=== PATIENT | female | born 1950 | race Caucasian/White ===

== ENCOUNTER 2025-03-21 06:38 | Emergency (ER) | payer MEDICARE, SELFPAY ==
[2025-03-21 06:40] VITALS: BMI 22.9
[2025-03-21 06:47] VITALS: BP 204/112; PULSE 75; RESP 18; TEMP 36.7; O2SAT 96
--- NOTE | 2025-03-21 06:54 | XR_ITS ---
Examination: CT soft tissue neck, with intravenous contrast. 2-D coronal reconstructions. 2-D sagittal reconstructions. Date and time of exam :March 21, 2025, 0832 hrs. Indications: Difficulty swallowing beginning 2 weeks ago. CTDI: vol (mGy):10.8 DLP: (mGycm):300 Technique: 1.25 mm axial sections of the neck of the obtained. Coronal and sagittal reconstructions have been obtained. Intravenous contrast administered 50 cc Isovue-370. Low dose protocols were performed. One or more of the following dose reduction techniques were used; automated exposure control, adjustment of the mA and/or KV according to patient size, use of iterative reconstruction technique. Findings: Chronic left sphenoid sinusitis Symmetrical nasopharynx oropharynx No pathologic cervical lymphadenopathy Symmetrical parotid submandibular glands. The larynx appears normal Enlarged right thyroid lobe with multiple right thyroid nodules, the largest 12 mm Normal epiglottis No prevertebral soft tissue prominence Significant degenerative disc disease C5-C6, C6-C7, prominent anterior osteophytes C6-C7 Impression: No pathologic lymphadenopathy Normal appendix Normal epiglottis Right thyromegaly with multiple right thyroid nodules, recommend dedicated thyroid sonography follow-up Given the patient's presentation, recommend standard fluoroscopically guided esophagram follow-up
--- NOTE | 2025-03-21 06:54 | PD.EDRME ---
Rapid Medical Screening Exam RME Arrival date/time: 03/21/25 06:38 Chief Complaint: General Adult/Misc Complain Time Seen by Provider: 03/21/25 06:48 Vital signs: Vital Signs Temperature 98.1 F 03/21/25 06:47 Pulse Rate 75 03/21/25 06:47 Respiratory Rate 18 03/21/25 06:47 Blood Pressure 204/112 H 03/21/25 06:47 Pulse Oximetry (%) 96 03/21/25 06:47 Oxygen Delivery Method Room Air 03/21/25 06:47 RME Narrative: Difficulty swallowing, throat swelling sensation x3 weeks. Reports nasal congestion started this morning. No shortness of breath or vomiting reported. Able to tolerate po.
[2025-03-21 07:27] LABS: Basophils # (Auto) 0.0 Thou/mm3 (0.0-0.2); Basophils % (Auto) 1 % (0-2.5); Eosinophils # (Auto) 0.1 Thou/mm3 (0.0-0.5); Eosinophils % (Auto) 2 % (0-10); Hematocrit 40.1 % (36.0-46.0); Hemoglobin 13.5 g/dL (12.0-16.0); Immature Granulocytes Auto 0.01 Thou/mm3 (0.00-0.00); Lymphocytes # (Auto) 1.3 Thou/mm3 (1.0-4.8); Lymphocytes % (Auto) 19 % (10-50); Mean Corpuscular HGB Conc 33.7 g/dl (31.0-37.0); Mean Corpuscular Hemoglobin 31.8 pg (25.0-35.0); Mean Corpuscular Volume 95 fL (80-100); Monocytes # (Auto) 0.5 Thou/mm3 (0.0-0.8); Monocytes % (Auto) 8 % (0-12); Neutrophils # (Auto) 4.7 Thou/mm3 (1.8-7.7); Neutrophils % (Auto) 70 % (37-80); Nucleated Red Blood Cell # 0.00 Thou/mm3 (0.00-0.00); Nucleated Red Blood Cell % 0 /100 WBC (0); Platelet Count 234 Thou/mm3 (140-440); RDW Standard Deviation 42.7 fL (36.4-46.3); Red Blood Count 4.24 Miln/mm3 (4.00-5.20); White Blood Count 6.6 Thou/mm3 (3.6-11.0)
[2025-03-21 08:19] LABS: Alanine Aminotransferase 13 U/L (10-49); Albumin, Serum 4.3 gm/dL (3.4-4.8); Albumin/Globulin Ratio 1.6 (1.2-2.2); Alkaline Phosphatase 45 U/L (46-116); Anion Gap 6 (7-16); Aspartate Amino Transferase 15 U/L (0-34); BUN/Creatinine Ratio 13 Ratio (12-20); Bilirubin,Total 0.7 mg/dL (0.3-1.2); Blood Urea Nitrogen 13 mg/dL (9-23); Calcium 10.4 mg/dL (8.3-10.6); Calcium (Corrected) 10.4 mg/dL (8.5-10.1); Carbon Dioxide 26.6 mMol/L (20.0-31.0); Chloride 109 mMol/L (98-107); Creatinine (Component) 1.0 mg/dL (0.6-1.3); Estimated Creatinine Clearance 52.6 mL/min (>60); Globulin 2.7 gm/dL (2.3-3.5); Glucose 111 mg/dL (74-106); Osmolality,Calculated 284 (275-295); Potassium 4.2 mMol/L (3.4-5.1); Sodium 142 mMol/L (136-145); Total Protein 7.0 gm/dL (5.7-8.2); eGFR 59 See Note
[2025-03-21 09:54] LABS: T4 (Thyroxine) 7.5 mcg/dL (4.5-10.9)
[2025-03-21 09:58] VITALS: BP 186/99; PULSE 61; RESP 18; O2SAT 98
--- NOTE | 2025-03-21 09:58 | XR_ITS ---
Examination: Thyroid sonography complete Technique: Grayscale sonographic images thyroid lobes Date and time: March 21, 2025, 10:00 AM Indications: CT examination soft tissue neck 20/07/2024 0832 hrs. Right thyromegaly multiple thyroid nodules Findings: Right thyroid 5.3 cm Upper pole nodule 16 x 12 mm, 11 x 10 mm Midpole nodules 18 x 14 mm, 12 x 10 mm Lower pole nodule 15 x 13 mm Isthmus vascular nodule 22 x 19 mm Isthmus solid nodule 5 x 6 mm Right thyroid 4.5 cm Lower pole cyst 4 x 3 mm Impression: Multiple thyroid nodules as above Consider ultrasound-guided fine-needle aspiration of the vascular isthmus nodule and the midpole right thyroid nodule to exclude malignant cytology
--- NOTE | 2025-03-21 10:00 | PD.EDADULT ---
ED General RME/HPI General Chief complaint: General Adult/Misc Complain Stated complaint: CAN'T SWALLOW Time Seen by Provider: 03/21/25 06:48 Arrival date/time: 03/21/25 06:38 Limitations: no limitations RME / HPI RME / HPI narrative: Difficulty swallowing, throat swelling sensation x3 weeks. Reports nasal congestion started this morning. No shortness of breath or vomiting reported. Able to tolerate po. DR. ARAUJO MAIN ED EVALUATION: 74-year-old female with past medical history of hypertension (on propranolol) and hyperlipidemia (on atorvastatin) presents to the Emergency Department accompanied by her for evaluation of difficulty swallowing and inability to coordinate talking and breathing. She reports symptoms have worsened over the past few months, including inability to breathe through her mouth when lying down. She describes a sensation of obstruction inside the throat. She had an endoscopy two years ago and is under monitoring for thyroid disease. She denies fevers, rhinorrhea, or recent travel. Her recently had a brief viral illness, and the patient developed a mild cough afterward but has had no fevers or nasal symptoms. She has no allergies. Related Data Previous Rx's ?Medication ?Instructions ?Recorded amoxicillin 875 mg-potassium 1 tab PO Q12H #14 tabs 03/21/25 clavulanate 125 mg tablet Allergies Allergy/AdvReac Type Severity Reaction Status Date / Time No Known Allergies Allergy Verified 03/21/25 06:39 Review of Systems Review of Systems Systems Reviewed: All systems reviewed, normal except as documented Past Medical History Past Medical History ENT: Positive Cataracts Family History FAMILY HISTORY: Positive Family Surgery Social History SMOKING STATUS: Never smoker SUBSTANCE USE: does not use ALCOHOL: Never ED Exam General Limitations: Present no limitations General appearance: Present alert, in no apparent distress and other (no stridor) Head Head exam: Present other (1.5 cm brown scalp lesion without fluctuance or tenderness, currently being followed by dermatology.) Eye Eye exam: Present normal appearance, PERRL and EOMI ENT ENT exam: Present normal exam, normal oropharynx, mucous membranes moist and other (uvula is midline without deviation, no tongue deviation) Neck Neck exam: Present full ROM, trachea midline and other (enlarged lymph nodes) Chest Chest inspection: Present normal inspection and symmetric chest wall rise Respiratory Respiratory exam: Present normal lung sounds bilaterally Cardiovascular Cardiovascular exam: Present regular rate, normal rhythm and normal heart sounds Abdominal Exam Abdominal exam: Present soft and normal bowel sounds Extremities Exam Extremities exam: Present normal inspection and full ROM Back Exam Back exam: Present normal inspection and full ROM Neurological Exam Neurological exam: Present alert, oriented X3 and CN II-XII intact Psychiatric Psychiatric exam: Present normal affect and normal mood Skin Skin exam: Present warm, dry, intact and normal color Course Quality Measures none Orders Category Date Time Status Bedside COVID-19 Antigen Test NOW Care 03/21/25 06:56 Active Bedside Influenza A&B Antigen Test NOW Care 03/21/25 06:[address] Screening NOW Care 03/21/25 06:[address] soft tissue neck w con Stat Exams 03/21/25 06:54 Completed CXR2 [XR chest 2V] Stat Exams 03/21/25 10:00 Completed US thyroid Stat Exams 03/21/25 09:58 Completed CBC Stat Lab 03/21/25 07:16 Completed CMP [Comprehensive Metabolic Panel] Stat Lab 03/21/25 07:16 Completed [place] Screen Stat Lab 03/21/25 07:16 Completed Strep A Rapid Stat Lab 03/21/25 10:25 Completed T4 (Thyroxine) Stat Lab 03/21/25 07:16 Completed Thyroid Stimulating Hormone Stat Lab 03/21/25 07:16 Completed Amoxicillin/Pot Clav 875 [Augmentin 875] Med 03/21/25 09:59 Discontinued 1 tab PO X1 ONE Aspirin [Ecotrin] Med 03/21/25 10:09 Discontinued 81 mg PO X1 ONE Propranolol HCl [Inderal] Med 03/21/25 10:09 Discontinued 40 mg PO X1 ONE Valsartan [Diovan] Med 03/21/25 10:09 Discontinued 40 mg PO X1 ONE Vital Signs Vital signs: Vital Signs Temperature 98.1 F 03/21/25 06:47 Pulse Rate 75 03/21/25 06:47 Respiratory Rate 18 03/21/25 06:47 Blood Pressure 204/112 H 03/21/25 06:47 Pulse Oximetry (%) 96 03/21/25 06:47 Oxygen Delivery Method Room Air 03/21/25 06:47 Discharge Plan Plan Patient Disposition: HOME (Self Care) Prescriptions/Referrals Prescriptions/Med Rec: New amoxicillin-pot clavulanate 875-125 mg tablet 1 tab PO Q12H Qty: 14 0RF Referrals: Carlito Blankenship MD [Primary Care Provider] - In 1 week Problem List Clinical Impression: Sinusitis, Lymphadenopathy Patient/Caregiver Discharge Instructions Additional Instructions: Please follow-up with your primary care physician within a week and get an endoscopy and follow up with an steamer tender for further assessment of your thyroid nodules, you may benefit from a repeat fine-needle biopsy. Return to the Emergency Department for worsening symptoms, difficulty breathing, or any other symptom of concern. Print Language: Luxembourgish Stand Alone Forms: Christina Award Info., Patient Portal Info Letter MDM Narrative MDM hospital course (for use when minimal MDM required): 74-year-old female with hypertension and hyperlipidemia presents with progressive dysphagia and sensation of throat obstruction, however has not had any difficulty with speaking, breathing or drinking or eating. Patient does not wake up in the middle the night gasping for air. Has been able to sleep comfortably. Labs without any acute hematologic or significant metabolic abnormality. Thyroid studies unremarkable, strep COVID flu negative. Chest x-ray without any acute cardiopulmonary abnormality. Thyroid ultrasound with multiple thyroid nodules. CT neck demonstrates thyromegaly with right-sided thyroid nodules, correlating with her symptoms. Enlarged lymph nodes further raise concern for thyroid disease. airway is currently stable with no stridor or tongue deviation, no difficulty breathing, no drooling, no difficulty handling secretions. Augmentin initiated given concern for possible sinus infection given patient also feels congested, and tightness at her maxillary sinus, patient does have a sick contact at home with respiratory symptoms. Patient is not in respiratory distress.. On multiple reevaluations patient hemodynamically stable not in distress will discharge to home with close return precautions and follow-up with her primary care doctor. All questions answered, patient in agreement with treatment plan Differential diagnosis: Thyroid enlargement with nodules, lymphadenopathy, and upper respiratory infection contributing to throat irritation. Most likely diagnosis given after review of the tests above: Sinusitis, thyroid nodules Latisha Lang am scribing for and in the presence of Dr. Araujo. Clinical Information Provided by: patient and spouse Medical Records reviewed [facility] Meds/Rx considered, not ordered None Labs/Rad/Tests considered, not ordered None Chronic Illness/Social Conditions Explain: Hypertension (on propranolol) and hyperlipidemia (on atorvastatin). She has no allergies. Labs Labs: see narrative above Imaging Imaging interpretation: see narrative above Imaging Interpretation(s): Procedure(s): XR chest 2V Accession Number(s): [id number] cc: [employer] BLANKENSHIP; Hernán Booker MD; Jessica Araujo MD~ Examination: PA lateral chest 2 views Technique: Upright PA lateral chest 2 views Date and time: March 21, 2025 1029 hrs. Indications: Difficulty breathing today. Findings: Minor prominence left ventricle Vascular congestion Subsegmental atelectasis right base laterally Moderate osteopenia Impression: Mild prominence of ventricle. No pneumonia or pulmonary edema Dictated By: Hernán Booker MD Procedure(s): US thyroid Accession Number(s): [id number] cc: [employer]ANK[employer]; Hernán Booker MD; Jessica Araujo MD~ Examination: Thyroid sonography complete Technique: Grayscale sonographic images thyroid lobes Date and time: March 21, 2025, 10:00 AM Indications: CT examination soft tissue neck 20/07/2024 0832 hrs. Right thyromegaly multiple thyroid nodules Findings: Right thyroid 5.3 cm Upper pole nodule 16 x 12 mm, 11 x 10 mm Midpole nodules 18 x 14 mm, 12 x 10 mm Lower pole nodule 15 x 13 mm Isthmus vascular nodule 22 x 19 mm Isthmus solid nodule 5 x 6 mm Right thyroid 4.5 cm Lower pole cyst 4 x 3 mm Impression: Multiple thyroid nodules as above Consider ultrasound-guided fine-needle aspiration of the vascular isthmus nodule and the midpole right thyroid nodule to exclude malignant cytology Dictated By: Hernán Booker MD Procedure(s): CT soft tissue neck w con Accession Number(s): [id number] cc: [employer]; Hernán Booker MD; Tristin Gelason PA-C~ Examination: CT soft tissue neck, with intravenous contrast. 2-D coronal reconstructions. 2-D sagittal reconstructions. Date and time of exam :March 21, 2025, 0832 hrs. Indications: Difficulty swallowing beginning 2 weeks ago. CTDI: vol (mGy):10.8 DLP: (mGycm):300 Technique: 1.25 mm axial sections of the neck of the obtained. Coronal and sagittal reconstructions have been obtained. Intravenous contrast administered 50 cc Isovue-370. Low dose protocols were performed. One or more of the following dose reduction techniques were used; automated exposure control, adjustment of the mA and/or KV according to patient size, use of iterative reconstruction technique. Findings: Chronic left sphenoid sinusitis Symmetrical nasopharynx oropharynx No pathologic cervical lymphadenopathy Symmetrical parotid submandibular glands. The larynx appears normal Enlarged right thyroid lobe with multiple right thyroid nodules, the largest 12 mm Normal epiglottis No prevertebral soft tissue prominence Significant degenerative disc disease C5-C6, C6-C7, prominent anterior osteophytes C6-C7 Impression: No pathologic lymphadenopathy Normal appendix Normal epiglottis Right thyromegaly with multiple right thyroid nodules, recommend dedicated thyroid sonography follow-up Given the patient's presentation, recommend standard fluoroscopically guided esophagram follow-up Dictated By: Hernán Booker MD Medication Administration(s) Medication Administration History Discontinued Medications Amoxicillin/Clavulanate Potassium (Amoxicillin/Pot Clav 875 Tablet) 1 tab PO X1 ONE Stop: 03/21/25 10:00 Last Admin: 03/21/25 10:20 Dose: 1 tab Documented By: BY Aspirin (Aspirin Ec 81 Mg Tabec) 81 mg PO X1 ONE Stop: 03/21/25 10:10 Last Admin: 03/21/25 10:20 Dose: 81 mg Documented By: BY Propranolol HCl (Propranolol 40 Mg Tablet) 40 mg PO X1 ONE Stop: 03/21/25 10:10 Last Admin: 03/21/25 10:20 Dose: 40 mg Documented By: BY Valsartan (Valsartan 40 Mg Tablet) 40 mg PO X1 ONE Stop: 03/21/25 10:10 Last Admin: 03/21/25 10:20 Dose: 40 mg Documented By: BY Diagnosis Differential Diagnosis ED Complaint MDM: Thyroid enlargement with nodules, lymphadenopathy with airway compression,
[2025-03-21 10:03] LABS: Thyroid Stimulating Hormone 2.07 uIU/mL (0.55-4.78)
[2025-03-21 10:20] VITALS: BP 186/99; PULSE 65; PULSE 66
[2025-03-21] MEDS: VALSARTAN 40 MG TABLET PO (10:20)
[2025-03-21] MEDS: PROPRANOLOL 40 MG TABLET PO (10:20)
[2025-03-21] MEDS: ASPIRIN EC 81 MG TABEC PO (10:20)
[2025-03-21] MEDS: AMOXICILLIN/POT CLAV 875 TABLET 1 TAB PO (10:20)
[2025-03-21 10:45] VITALS: BP 177/98; PULSE 68; RESP 19; TEMP 36.7; O2SAT 97
[2025-03-21 11:31] LABS: Strep A Rapid Negative (Negative)
[2025-03-21 12:54] LABS: Mono Screen Negative (Negative)
[2025-03-21 13:32] VITALS: BP 168/98; PULSE 62; RESP 18; O2SAT 98
== END 2025-03-21 13:33 | disposition home or self-care (01) ==
PROVIDERS: Physician Assistant; Emergency Provider Emergency Medicine; PCP Internal Medicine
DX: J32.3 Chronic sphenoidal sinusitis (principal); R59.1 Generalized enlarged lymph nodes; E04.2 Nontoxic multinodular goiter; I10 Essential (primary) hypertension; E78.5 Hyperlipidemia, unspecified
CPT/HCPCS: 36415; 70491; 71046; 76536; 80053; 84436; 84443; 85025; 86308; 87400; 87651; 87811; 99284; A4649; Q9967; A9270